=== PATIENT | female | born 1995 | race African-American/Black ===

== ENCOUNTER 2019-10-05 20:45 | Emergency (ER) | payer BC ==
[~2019-10-05] VITALS: Ht 170.2 cm; Wt 59.9 kg
--- NOTE | 2019-10-05 20:50 | NUR ---
TO ER BED 15 AMBULATORY C/O "I HAVE BEEN DEPRESSED & I HAVE SUICIDAL THOUGHTS TO OD ON PILLS" (+) ETOH. DENIES HI. PT EMOTIONAL DURING ASSESSMENT, PT CALM AND COOPERATIVE AT THIS TIME. PLACE PT ON HOSPITAL GOWN, ALL BELONGINGS REMOVED FROM ROOM. 1:1 SITTER AT BEDSIDE FOR PT SAFETY.
--- NOTE | 2019-10-05 21:19 | NUR ---
ANNA WINCHESTER AT [facility] TO NICOLE PT WITH ORDERS RECEIVED. WILL CARRY OUT ORDERS.
--- NOTE | 2019-10-05 21:40 | NUR ---
BLOOD DRAWN AND SENT TO LAB.
[2019-10-05 21:43] LABS: BASOPHILS % (AUTO) 0.8 % (0.0-2.0); EOSINOPHILS % (AUTO) 1.2 % (0.0-6.0); HEMATOCRIT 37 % (33-45); HEMOGLOBIN 12.3 g/dL (11.5-14.8); LYMPHOCYTES # (AUTO) 1.5 /CMM (0.8-4.8); LYMPHOCYTES % (AUTO) 42.3 % (20.0-44.0); MEAN CORPUSCULAR HGB CONC 33 g/dl (31.0-36.0); MEAN CORPUSCULAR VOLUME 92 fL (82-100); MONOCYTES # (AUTO) 0.4 /CMM (0.1-1.30); MONOCYTES % (AUTO) 11.5 % (2.0-12.0); NEUTROPHILS # (AUTO) 1.6 /CMM (1.8-8.9); NEUTROPHILS % (AUTO) 44.2 % (43.0-81.0); PLATELET COUNT (AUTO) 215 /CMM (150-450); RED BLOOD CELL COUNT(AUTO) 4.06 MIL/uL (4.0-5.2); WHITE BLOOD COUNT (AUTO) 3.5 K/uL (4.3-11.0)
[2019-10-05 21:57] LABS: CALCIUM, SERUM 9.2 mg/dL (8.5-10.1); CREATININE 0.6 mg/dL (0.6-1.3); POTASSIUM 3.4 mmol/L (3.5-5.1)
[2019-10-05 22:01] LABS: APPEARANCE,URINE Clear (CLEAR); BILIRUBIN,URINE Negative (NEGATIVE); BLOOD, URINE Trace-intact Ery/uL (NEGATIVE); COLOR,URINE Yellow (YELLOW); KETONES,URINE Trace (NEGATIVE); LEUKOCYTE ESTERASE ,URINE Negative (NEGATIVE); NITRITE, URINE Negative (NEGATIVE); PROTEIN,URINE Negative (NEGATIVE); UGLUCOSE Negative (NEGATIVE); UROBILINOGEN,URINE 0.2 EU/dL (0.2)
[2019-10-05 22:10] LABS: ALBUMIN 4.3 g/dL (3.4-5.0); BILIRUBIN,DIRECT 0.1 mg/dL (0.0-0.2); BILIRUBIN,TOTAL 0.7 mg/dL (0.2-1.0); SALICYLATE 0.8 mg/dL (2.8-20.0); TOTAL PROTEIN, SERUM 8.1 g/dL (6.4-8.2)
[2019-10-05 22:19] LABS: BACTERIA,URINE Few /HPF (None Seen); SQUAMOUS EPITHELIAL CELL,UR Moderate /HPF (None Seen)
[2019-10-05 22:20] LABS: YEAST,URINE Moderate /HPF (None Seen)
--- NOTE | 2019-10-05 22:27 | NUR ---
CALLED [facility] YEAGER FOR CRISIS EVALUATION
[2019-10-05] MEDS ORDERED: POTASSIUM CHLORIDE 20 MEQ TAB.PRT.SR PO ONE ×3 (23:00→23:42)
--- NOTE | 2019-10-05 23:30 | NUR ---
JG YEAGER AT BEDSIDE FOR EVALUATION
--- NOTE | 2019-10-05 23:40 | NUR ---
SHOBHA GREGORIO UI ENGINEER AT BEDSIDE TO NICOLE MALIK.
--- NOTE | 2019-10-06 00:47 | NUR ---
FERMIN DIAZ ([facility]) PT ACCEPTED BY DR. NUNN ROOM ASSIGNMENT: UNIT 2W ROOM 252B NUMBER FOR REPORT: [phone] (TRANSFER TO )
--- NOTE | 2019-10-06 00:58 | NUR ---
CALLED [facility] FOR TRANSPORTATION, ETA [phone] TRIP NUMBER [id number]
--- NOTE | 2019-10-06 01:00 | NUR ---
CALLED [facility] FOR POSSIBLE TRANSPORTATION, ETA [phone].
--- NOTE | 2019-10-06 01:17 | NUR ---
PT ASLEEP, EASILY AROUSABLE, NO ACUTE DISTRESS NOTED, RESP EVEN AND UNLABORED. CALL LIGHT WIIN REACH WILL CONTINUE TO MONITOR PT CLOSELY. 1:1 SITTER [facility] AT [facility] FOR PT SAFETY.
--- NOTE | 2019-10-06 05:52 | NUR ---
GAVE REPORT TO JAS GREGORIO FROM [facility]
--- NOTE | 2019-10-06 06:39 | NUR ---
GAVE REPORT TO [facility]SP[facility]
--- NOTE | 2019-10-06 06:50 | NUR ---
[facility] AT BEDSIDE REPORT GIVEN TO EMT.
[2019-10-06 06:51] VITALS: BP 102/63
== END 2019-10-06 06:52 ==
LOC: ER 20:48
DX: R45.851 Suicidal ideations (principal); E87.6 Hypokalemia; D72.819 Decreased white blood cell count, unspecified; F32.9 Major depressive disorder, single episode, unspecified; F10.10 Alcohol abuse, uncomplicated; Z88.6 Allergy status to analgesic agent; Y90.9 Presence of alcohol in blood, level not specified
CPT/HCPCS: 36415; 80048; 80076; 80305; 80307; 80329; 81001; 84703; 85025; 87086; 99285; G0480; 81000-TC

== ENCOUNTER 2021-08-11 17:05 | Emergency (ER) | payer BC, OTHER ==
[~2021-08-11] VITALS: Ht 170.2 cm; Wt 61.2 kg
--- NOTE | 2021-08-11 17:25 | NUR ---
PT CAME TO ER C/O ABDOMINAL DISCOMFORT AND BLOATING X 1 DAY AFTER EATING FOOD. DENIES N/V. ADMITS 1 EPISODE OF DIARRHEA. AAOX4, AMBULATORY, BREATHING EVEN AND UNLABORED, PULSES 2+ BILATERALLY, SKIN IS WARM AND DRY. PT ASSISTED TO ER BED 3.
--- NOTE | 2021-08-11 18:02 | NUR ---
URINE SAMPLE OBTAINED AND SENT TO LAB
--- NOTE | 2021-08-11 19:25 | NUR ---
20G 1V LINE STARTED IN [facility] BLOOD COLLECTED AND SENT TO LAB
[2021-08-11 19:43] LABS: BASOPHILS % (AUTO) 1.4 % (0.0-2.0); EOSINOPHILS % (AUTO) 1.6 % (0.0-6.0); HEMATOCRIT 41 % (33-45); HEMOGLOBIN 13.2 g/dL (11.5-14.8); LYMPHOCYTES # (AUTO) 1.5 K/uL (0.8-4.8); LYMPHOCYTES % (AUTO) 50.1 % (20.0-44.0); MEAN CORPUSCULAR HGB CONC 33 g/dl (31.0-36.0); MEAN CORPUSCULAR VOLUME 92 fL (82-100); MONOCYTES # (AUTO) 0.3 K/uL (0.1-1.30); MONOCYTES % (AUTO) 9.6 % (2.0-12.0); NEUTROPHILS # (AUTO) 1.1 K/uL (1.8-8.9); NEUTROPHILS % (AUTO) 37.3 % (43.0-81.0); PLATELET COUNT (AUTO) 248 K/uL (150-450); WHITE BLOOD COUNT (AUTO) 3.1 K/uL (4.3-11.0)
--- NOTE | 2021-08-11 19:46 | NUR ---
COVID TEST SWABBED AND SENT TO LAB
[2021-08-11 19:55] LABS: CALCIUM, SERUM 9.1 mg/dL (8.5-10.1); CARBON DIOXIDE 26 mmol/L (21-32); CHLORIDE 106 mmol/L (98-107); CREATININE 0.7 mg/dL (0.6-1.3); GLUCOSE 90 mg/dL (74-106); SODIUM SERUM 142 mmol/L (136-145); UREA NITROGEN, BLOOD 12 mg/dL (7-18)
[2021-08-11] MEDS ORDERED: ONDA4TAB5 PO (20:39)
--- NOTE | 2021-08-11 20:48 | NUR ---
Patient discharged to home in stable condition. Written and verbal after care instructions given. Patient verbalizes understanding of instruction. IV line discontinued and gentle pressure applied to site without issue.
[2021-08-11 20:50] VITALS: BP 120/74
== END 2021-08-11 20:50 | disposition home or self-care (01) ==
LOC: ER 17:08
DX: A05.9 Bacterial foodborne intoxication, unspecified (principal); R07.89 Other chest pain; Z20.822 Contact with and (suspected) exposure to COVID-19
CPT/HCPCS: 36415; 71045; 80048; 84484; 84703; 85025; 87426; 93005; 99285; C9803; U0003